=== PATIENT | female | born 1945 | race Caucasian/White ===

== ENCOUNTER 2017-08-16 13:23 | Emergency (ER) | payer OTHER ==
[2017-08-16 13:43] VITALS: TEMP 98.3; BMI 21.6
--- NOTE | 2017-08-16 13:52 | PDOC ---
History of Present Illness - General Chief Complaint: Chest Pain Stated Complaint: R/O STROKE Time Seen by Provider: 08/16/17 13:35 - History of Present Illness Initial Comments: Patient is a 72 year old female, with a significant past medical history of HTN , DM2, prior CVA, who presents to the emergency department complaining of R sided arm, shoulder and neck pain. Pt with prior hx of L-sided CVA in 01/2017, with residual dysarthria, as well as chronic R-sided neuropathic pain in R arm, shoulder and posterior neck. Pt w/ this chronic pain (on gabapentin; receiving PT) since Jan, 2017. Today in PM, pt began complaining of severe exacerbation of her pain in addition to sense of BL neck pain and tightness in throat. Pt denies f/c/n/v/d, chest pain, tightness, SOB, dysphagia, cough, N/V, ab pain, back pain, vision changes, vision changes, dizziness, FNDs. Pt with no recent travel or sick contacts. Pt lives at home with and receives assistance with ADLs from [facility]. Pt follows with Dr. Rossi for neurology and only takes ASA for AC. Pt with no prior cardiac hx. Allergies: None Past surgical history: None Social History: Denies all toxic habits PMD: Dr. Scott 08/16/17 13:52 Past History - Past Medical History Allergies/Adverse Reactions: Allergies Allergy/AdvReac Type Severity Reaction Status Date / Time No Known Allergies Allergy Verified 08/16/17 13:42 CVA: Yes (aphasia, generalized weakness. 02/14/2017) COPD: No Other medical history: right sided caratoid blockage - Suicide/Smoking/Psychosocial Hx Smoking History: Never smoked Have you smoked in the past 12 months: No Information on smoking cessation initiated: No Hx Alcohol Use: No Drug/Substance Use Hx: No Substance Use Type: None Review of Systems - Review of Systems Comments:: GENERAL/CONSTITUTIONAL: No fever or chills. No weakness. HEAD, EYES, EARS, NOSE AND THROAT: +throat tightness. No change in vision. No ear pain or discharge. No sore throat. CARDIOVASCULAR: No chest pain or shortness of breath RESPIRATORY: No cough, wheezing, or hemoptysis. GASTROINTESTINAL: No nausea, vomiting, diarrhea or constipation. GENITOURINARY: No dysuria, frequency, or change in urination. MUSCULOSKELETAL: +Pain in neck, shoulder and arm (R side) No joint or muscle swelling or pain. SKIN: No rash NEUROLOGIC: No headache, vertigo, loss of consciousness, or change in strength/ sensation. ENDOCRINE: No increased thirst. No abnormal weight change HEMATOLOGIC/LYMPHATIC: No anemia, easy bleeding, or history of blood clots. ALLERGIC/IMMUNOLOGIC: No hives or skin allergy. 08/16/17 13:52 *Physical Exam - Vital Signs Last Vital Signs Temp Pulse Resp BP Pulse Ox 98.3 F 80 16 160/77 100 08/16/17 13:25 08/16/17 13:25 08/16/17 13:25 08/16/17 13:25 08/16/17 13:25 - Physical Exam Comments: GENERAL: Elderly woman, Awake, alert, and fully oriented, in significant distress HEAD: No signs of trauma, normocephalic, atraumatic EYES: PERRLA, EOMI, sclera anicteric, conjunctiva clear ENT: Auricles normal inspection, hearing grossly normal, nares patent, oropharynx clear without exudates. Moist mucosa NECK: Normal ROM, supple, no lymphadenopathy, JVD, or masses LUNGS: No distress, speaks full sentences, clear to auscultation bilaterally HEART: Tachycardic, regular rate and rhythm, normal S1 and S2, no murmurs, rubs or gallops, peripheral pulses normal and equal bilaterally. ABDOMEN: Soft, nontender, normoactive bowel sounds. No guarding, no rebound. No masses EXTREMITIES : Normal inspection, Normal range of motion, no edema. No clubbing or cyanosis. NEUROLOGICAL: Mild dysarthria. L sided facial droop on L labial fold. Otherwise , cranial nerves II through XII grossly intact. Gait not evaluated, 5/5 strength and sensation in all extremities. SKIN: Warm, Dry, normal turgor, no rashes or lesions noted 08/16/17 13:52 ED Treatment Course - LABORATORY CBC & Chemistry Diagram: 08/16/17 15:00 08/16/17 15:00 Medical Decision Making - Medical Decision Making Patient is a 72 year old female, with a significant past medical history of HTN , DM2, prior CVA, who presents to the emergency department complaining of R sided arm, shoulder and neck pain. Pt likely suffering from acute exacerbation of chronic neuropathic pain, given no new FND findings. Pt likely with anxiety component as well, given hx of prior CVA and recent depression due to displacement from OR. Plan: - cbc, cmp, pt/inr, cardiac profile - ekg, cxr - ua, urine culture - cardiac monitoring - morphine, xanax - Consider non-con CT Head if any new neuro symptoms 08/16/17 15:44 The patient has gotten significant relief of symptoms with ED medications. Workup is not concerning for emergency-level pathology at this time. The patient is appropriate for discharge with close outpatient follow up. They are comfortable with this plan and will follow up with their PCP in 1-3 days. Return precautions are discussed and they will come back to the ER if necessary. CTA head/neck negative for acute pathology; all labs unremarkable; Discussed case with Dr. Rossi, plan for discharge home and f/u with Dr. Rossi as outpt. Patient counseled on results, all questions answered. 08/16/17 20:31 *DC/Admit/Observation/Transfer Diagnosis at time of Disposition: Chronic neuropathic pain - Discharge Dispostion Disposition: HOME Condition at time of disposition: Good Decision to Admit order: No - Referrals - Patient Instructions Printed Discharge Instructions: Neuropathic Pain Additional Instructions: During your visit to the [facility] ED, you were evaluated for right-sided pain in your shoulder and neck. You received standard labs and CT scan of your head and neck, which were all unremarkable for an acute process. You are being discharged home with outpatient follow-up with your primary care provider, as well as your neurologist, Dr. Rossi. Please continue to take ASA 81mg every day per Dr. Rossi's recommendations. You are being provided a referral for follow-up with Dr. Rossi, your neurologist for further management of your chronic neuropathic pain. Please call the number provided in this packet to schedule an appointment within one week. If you experience any of the following symptoms, please return to the ED: - Worsening, acute shortness of breath - Pain or tightness in your chest - Changes in vision, numbness/weakness in any extremities, or persistent dizziness/loss of consciousness - Any new or concerning symptoms - Post Discharge Activity
[2017-08-16] MEDS ORDERED: morphine CARPU-JECT 2 MG/1 ML DISP.SYRIN IVPUSH ONE (15:01)
[2017-08-16] MEDS ORDERED: morphine CARPU-JECT 2 MG/1 ML DISP.SYRIN ONE (15:13)
[2017-08-16] MEDS ORDERED: LORazepam 2 MG/ML SDV VIAL ONE (15:14)
[2017-08-16 15:18] LABS: BASO % 0.3 % (0-2.0); EOS % 4.3 % (0-4.5); HEMATOCRIT 40.6 % (32.4-45.2); HEMOGLOBIN 13.4 GM/dL (10.7-15.3); LYMPH % 21.7 % (8-40); MCH 29.6 pg (25.7-33.7); MEAN CELL VOLUME 89.7 fl (80-96); MEAN PLT VOLUME 9.5 fl (7.5-11.1); NEUT % 65.7 % (42.8-82.8); PLATELET COUNT 264 K/MM3 (134-434); RBC 4.53 M/mm3 (3.60-5.2); RDW 12.9 % (11.6-15.6); WHITE BLOOD COUNT 10.9 K/mm3 (4.0-10.0)
[2017-08-16 15:36] LABS: INR 1.1 (0.82-1.09); PROTHROMBIN TIME (PATIENT) 12.4 SEC (9.7-13.0)
[2017-08-16 15:46] LABS: ALBUMIN 3.7 g/dl (3.4-5.0); ALK PHOS 128 U/L (45-117); ANION GAP 9 (8-16); BILIRUBIN,TOTAL 0.8 mg/dL (0.2-1.0); BLOOD UREA NITROGEN 21 mg/dL (7-18); CHLORIDE 104 mmol/L (98-107); CO2 25 mmol/L (21-32); CREATININE 0.9 mg/dL (0.55-1.02); GLUCOSE,RANDOM 184 mg/dL (74-106); SGPT/ALT 37 U/L (12-78); SODIUM 138 mmol/L (136-145); TOT PROT 7.6 g/dl (6.4-8.2)
[2017-08-16 15:49] LABS: POTASSIUM 5.1 mmol/L (3.5-5.1); SGOT/AST 57 U/L (15-37)
[2017-08-16 15:56] LABS: URINE APPEARANCE CLEAR; URINE BILIRUBIN NEGATIVE (<2.0 mg/dL); URINE COLOR STRAW; URINE GLUCOSE (UA) 3+ (NEGATIVE); URINE KETONE NEGATIVE (NEGATIVE); URINE LEUK ESTERASE NEGATIVE (NEGATIVE); URINE NITRITE NEGATIVE (NEGATIVE); URINE PROTEIN NEGATIVE (NEGATIVE); URINE UROBILINOGEN NEGATIVE mg/dL (0.2-1.0)
--- NOTE | 2017-08-16 16:20 | PDOC ---
Attending Attestation - Resident Resident Name: Oscar Marcos - ED Attending Attestation I have performed the following: I have examined & evaluated the patient, The case was reviewed & discussed with the resident, I agree w/resident's findings & plan, Exceptions are as noted - HPI HPI: 08/16/17 16:14 72 F with h/o HTN, DM2, prior CVA with residual R side deficits, presenting to ED with R neck pain. Pt has chronic R sided neck pain and had recent MRI showing pinched nerve. However, pt states that the pain acutely worsened today. She denies any hyperextension or flexion of her neck. Denies any injury. Pt denies any new weakness/numbness in any extremity. Family members report she is at baseline mentation with no apparent new deficits. Pt denies F/C. Denies MACKAY. - Physicial Exam PE: 08/16/17 16:26 "GENERAL: Awake, alert, and fully oriented, in no acute distress. HEAD: No signs of trauma EYES: PERRLA, EOMI, sclera anicteric, conjunctiva clear ENT: Auricles normal inspection, hearing grossly normal, nares patent, oropharynx clear without exudates. Moist mucosa NECK: +R paraspinal tenderness, no bruits, no stepoffs, Normal ROM, supple, no lymphadenopathy, JVD, or masses LUNGS: Breath sounds equal, clear to auscultation bilaterally. No wheezes, and no crackles HEART: Regular rate and rhythm, normal S1 and S2, no murmurs, rubs or gallops ABDOMEN: Soft, nontender, normoactive bowel sounds. No guarding, no rebound. No masses EXTREMITIES: Normal range of motion, no edema. No clubbing or cyanosis. No cords, erythema, or tenderness NEUROLOGICAL: Cranial nerves II through XII intact. + R sided weakness, sensation wnl SKIN: Warm, Dry, normal turgor, no rashes or lesions noted. " - Medical Decision Making 08/16/17 16:28 72 F with prior CVA presents to ED with R neck pain. Likely chronic pain 2/2 pt' s known radiculopathy. However, given severity of pt's pain today, will r/o dissection with CTA. - Labs - CTA head/neck - Discuss with Dr. Rossi CTA negative Pt reassessed - pain improved. Dr. Rossi consulted, agrees with plan to discharge. Pt is well appearing, with normal vitals. Clinically stable for DC at this time. I discussed the physical exam findings, ancillary test results and final diagnoses with the patient. I answered all of the patient's questions. The patient was satisfied with the care received and felt comfortable with the discharge plan and treatment plan. The patient agrees to follow up with the primary care physician within 24-72 hours.
[2017-08-16 20:38] VITALS: BP 136/66; PULSE 74
--- NOTE | 2017-08-17 13:35 | EKG ---
Test Reason : Blood Pressure : / mmHG Vent. Rate : 075 BPM Atrial Rate : 075 BPM P-R Int : 202 ms QRS Dur : 148 ms QT Int : 392 ms P-R-T Axes : 043 -24 137 degrees QTc Int : 437 ms NORMAL SINUS RHYTHM POSSIBLE LEFT ATRIAL ENLARGEMENT LEFT BUNDLE BRANCH BLOCK ABNORMAL ECG NO PREVIOUS ECGS AVAILABLE Confirmed by MD Margi, Ronnie ([id number]) on 08/17/2017 1:35:11 PM Referred By: Confirmed By:Ronnie Kiser MD
== END 2017-08-16 20:30 | disposition home or self-care (01) ==
LOC: JER 13:23
PROC: 3E033NZ Introduction of Analgesics, Hypnotics, Sedatives into Peripheral Vein, Percutaneous Approach (ICD-10-PCS; principal; 2017-08-16)
PROC: 3E023NZ Introduction of Analgesics, Hypnotics, Sedatives into Muscle, Percutaneous Approach (ICD-10-PCS; 2017-08-16)
DX: G58.8 Other specified mononeuropathies (principal); I10 Essential (primary) hypertension; E11.9 Type 2 diabetes mellitus without complications; I69.822 Dysarthria following other cerebrovascular disease; I65.21 Occlusion and stenosis of right carotid artery
CPT/HCPCS: 36415; 70496-TC; 70498-TC; 71045-TC-FY; 80053; 81003; 82550; 84484; 85025; 85610; 87086; 93005; 93010; 96372; 96374; 99284-25